=== PATIENT | female | born 1960 | race Caucasian/White ===

== ENCOUNTER 2016-08-05 14:42 | Emergency (ER) | payer OTHER ==
--- NOTE | 2016-08-05 16:04 | DIAGNOSTIC IMAGING REPORT ---
PROCEDURE: XR CHEST 2 VIEW INDICATION: CHEST PAIN TECHNIQUE: PA and lateral views. COMPARISON: None. FINDINGS: Lungs are clear. Heart and mediastinum are normal. Thorax is normal. Pacemaker and wires and electrodes. IMPRESSION: 1. No acute disease
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
--- NOTE | 2016-08-05 17:31 | ED NURSING NOTES ---
Clinical Report - Nurses [facility] [address] [place] [place] [address] 08/05/2016 14:42 Patient: JOSELYN PAREDES TRIAGE Triage time 14:48. Acuity: LEVEL 3. Chief Complaint: DIZZINESS, LIGHT HEADED and NEAR-SYNCOPE. --15:02 Rayna Barry R.N. 14:58 08/05/16. BP: 156/88. HR: 81. RR: 18. O2 saturation: 98%. Temp: 98.3 F. Pain level now: 09/24. --15:02 Rayna Barry R.N. Weight: 63.5 kg stated. Height/Length: 66 inches Per Patient. BMI: 22.6. --15:20 Rayna Barry R.N. Medications Lisinopril Oral. --20:08 Philippe Ruano R.N. Aspirin Oral. --20:09 Philippe Ruano R.N. Citalopram Hydrobromide Oral. --20:09 Philippe Ruano R.N. Allergies vicodin=rash. --14:59 Rayna Barry R.N. History Arrived by EMS. Historian: patient. This started yesterday. Onset. (Pt states she has not been feeling well for 2 days, when at court today she became light-headed and experienced left arm pain. Hx of [place] with pacemaker.). SOCIAL HX: Light tobacco smoker- less than 1/2 a pack per day. Regular alcohol use; consumes beer and three liquor weekly. No drug use. No infectious disease exposure. FALL RISK ASSESSMENT: Fall risk assessment completed. No fall risk identified. NUTRITIONAL RISK ASSESSMENT: The nutritional risk assessment revealed no deficiencies. FUNCTIONAL ASSESSMENT: Functional assessment: no impairments noted. LEARNING NEEDS ASSESSMENT: The learning needs assessment revealed no barriers. SKIN INTEGRITY ASSESSMENT: Skin integrity risk assessment completed. No skin integrity risk identified. --15:02 Rayna Barry R.N. PROBLEMS: COPD - Chronic Obstructive Pulmonary Disease. Pacemaker. Myocardial Infarction. --15:00 Rayna Barry R.N. Interventions ID band on patient. --15:02 Rayna Barry R.N. PHYSICAL ASSESSMENT GENERAL / NEURO / PSYCH: Oriented X 4. Appears in no acute distress. Alert. Speech within normal limits. HEENT: Pupils equal, round and reactive to light. RESPIRATORY: Mild respiratory distress. ( pt coached on slow, deep breathing). CVS: Normal sinus rhythm noted. GI / : Abdomen soft and nontender. SKIN: Skin is warm. --15:45 Rayna Barry R.N. Patient gowned. --15:45 Rayna Barry R.N. NURSING PROGRESS NOTES 15:15 08/05/2016 Aspirin PO Tablets 325 mg given. --15:40 Rayna Barry R.N. Monitoring of patient in place. Patient gowned. Reassurance given. Patient identifiers checked. Call light placed in reach. Side rails up. Bed placed in lowest position. --15:43 Rayna Barry R.N. ( spoke with deputy jamison, states there will not be a flour mixer helper coming to detain patient. It was explained to him that hospital staff are not going to detain her either, he is aware.). --15:43 Rayna Barry R.N. 15:30 08/05/2016 Site #1 started via IV in the left hand with an 22g angiocath, with aseptic technique; one attempt. Saline lock flushed with 10 mL saline (Small amount of blood in purple and red top). --15:45 Jamison Saldana R.N. 15:35 08/05/2016 Site #2 started via IV in the right foot with an 22g angiocath, with aseptic technique and good blood return; one attempt. Saline lock flushed with 10 mL saline (Red and Purple top drawn). --15:46 Jamison Saldana R.N. EKG time: (15:01). EKG was performed by a amadou and shown to the ED physician. --16:37 Peggy Hannah 18:01 08/05/2016 Site #3 started via IV in the left antecubital space with an 18g angiocath, with aseptic technique and good blood return; one attempt. Saline lock flushed with 10 mL saline. --18:01 Inderbitzen, Tracy, R.N. 18:01 08/05/16. ( assist to primary RN. IV started saline lock in medial left AC fossa. 10 ml NSS flush hard with no sign of infiltration. Pt tolerated well.). --18:01 Tracy Bang R.N. ( No pt needs at this time). --20:09 Philippe Ruano R.N. 20:09 08/05/16. --20:09 Philippe Ruano R.N. 20:48 08/05/2016 Bactrim DS (Sulfamethoxazole-TMP DS) PO 1 tab given. Allergies verified and confirmed 5 rights. --20:48 Antoine Vizcarra R.N. 20:57 08/05/2016 Site #1 removed upon discharge. Catheter intact. Bandaid applied. --20:57 Ani Vargas R.N. 20:57 08/05/2016 Site #2 removed upon discharge. Catheter intact. Bandaid applied. --20:57 Ani Vargas R.N. 20:57 08/05/2016 Site #3 removed upon discharge. Catheter intact. Bandaid applied. --20:57 Ani Vargas R.N. DISPOSITION / DISCHARGE 20:45. Condition at departure: improved. ( First contact with the patient.). No learning barriers present. Discharge instructions provided and reviewed with the patient. Reviewed medication(s) side effects, precautions, dosing and course information. Prescription(s) given to the patient. Patient verbalized understanding. Written instructions provided in Peruvian. The patient was discharged home and accompanied by pen and pencil repairer. She left the Emergency Department ambulatory and via private vehicle. Assignment Manager driving. Medication list reviewed and validated. --21:19 Ani Vargas R.N. 20:45 08/05/16. BP: 145/78. HR: 74. RR: 16. O2 saturation: 99% on room air. Temp: deferred. Pain level now: 08/27. 14:58 08/05/16. BP: 156/88. HR: 81. RR: 18. O2 saturation: 98%. Temp: 98.3 F. Pain level now: 09/24. --21:19 Vargas, Ani, R.N. Locked/Released at 08/05/2016 21:22 by Ani Vargas R.N.
--- NOTE | 2016-08-05 17:31 | ED ORDER SUMMARY ---
..... Patient: JOSELYN PAREDES OrderSheet [facility] VisitID: [id number] [place] [address] 55y, F Registration Date/Time: 08/05/2016 ORDER SHEET Weight: 63.5 kg (stated) Allergies: vicodin=rash GENERAL ORDERS: Chest 2V Urgent (15:[facility]05/2016 [facility] (Ack 15:15 LTapper) (15:47 SStone R.N.) Load Out Worker (Continuous) (15:08/05/2016 [facility]) (15:47 SStone R.N.) UA-Culture if indicated Urgent ([facility]2016 [facility] (Ack 15:15 LTapper) (Cancelled: Unable to Iivcgcy00:20 SRoberts R.N.) Cardiac Panel Stat (15:08/05/2016 [facility] (Ack 15:15 LTapper) (15:47 SStone R.N.) BNP Urgent (15:08/05/2016 [facility]) (Ack 15:15 LTapper) (15:47 SStone R.N.) D-Dimer Urgent (15:08/05/2016 [facility] (Ack 15:15 LTapper) (15:47 SStone R.N.) Amylase Urgent (15:08/05/2016 PHhichinson DO) (Ack 15:15 LTapper) (15:47 SStone R.N.) Lipase Urgent (15:08/05/2016 PHhichinson DO) (Ack 15:15 LTapper) (15:47 SStone R.N.) TSH Urgent (15:08/05/2016 PHhichinson DO) (Ack 15:15 LTapper) (15:47 SStone R.N.) PT with INR Urgent (15:08/05/2016 PHhichinson DO) (Ack 15:15 LTapper) (15:47 SStone R.N.) Pulse oximeter (15:08/05/2016 [facility] (15:47 SStone R.N.) EKG - ER Stat (15:10 08/05/2016 [facility]) (Ack 15:15 LTapper) (15:47 SStone R.N.) Vitals (15:10 08/05/2016 [facility]) (15:47 SStone R.N.) Old Records (from [facility]) (15:17 08/05/2016 [facility]) (Ack 15:47 LTapper) (21:20 SRoberts R.N.) CTA Thorax w Cont (No) (N/A) Urgent (16:48 08/05/2016 [facility]) (Ack 17:37 LTapper) (20:43 MCampbell) Rapid Influenza Screen (Nasal Pharyngeal) (RESPITE WORKER swab) Urgent (17:31 08/05/2016 [facility]) (Ack 17:37 LTapper) (Cancelled: Patient Inejtkp54:21 SRoberts R.N.) Troponin-I (repeat now) Urgent (19:21 08/05/2016 [facility]) (Ack 19:30 LTapper) (19:35 LTapper) MEDICATION ORDERS: Aspirin PO 325 mg (if not taken) (15:10 08/05/2016 [facility]) (Ack 15:20 SStone R.N.) (15:40 SStone R.N.) Bactrim DS PO (Tablet 800-160 mg) 1 tab (NOW) (20:38 08/05/2016 [facility]) (20:48 TLewis R.N.) IV FLUIDS: IV Saline Lock (15:10 08/05/2016 [facility]) (Ack 15:40 SStone R.N.) (15:45 JRomanelli R.N.) ORDER SHEET NOTES: [Electronically signed by Ani Vargas R.N. (21:22 08/05/2016)] [Electronically signed by Irwin Hackett DO (10:43 08/06/2016)] [Electronically locked/signed by Ani Vargas R.N. (21:22 08/05/2016)]
--- NOTE | 2016-08-05 17:31 | ED ORDER SUMMARY ---
..... Patient: JOSELYN PAREDES OrderSheet [facility] VisitID: [id number] [place] [address] 55y, F Registration Date/Time: 08/05/2016 ORDER SHEET Weight: 63.5 kg (stated) Allergies: vicodin=rash GENERAL ORDERS: Chest 2V Urgent (15:08/05/2016 [facility]) (Ack 15:15 LTapper) (15:47 SStone R.N.) Reel Blade Bender Furnace Tender (Continuous) (15:08/05/2016 [facility]) (15:47 SStone R.N.) UA-Culture if indicated Urgent ([facility]05/2016 [facility] (Ack 15:15 LTapper) (Cancelled: Unable to Rlcabav40:20 SRoberts R.N.) Cardiac Panel Stat (15:08/05/2016 [facility]) (Ack 15:15 LTapper) (15:47 SStone R.N.) BNP Urgent (15:08/05/2016 [facility]) (Ack 15:15 LTapper) (15:47 SStone R.N.) D-Dimer Urgent (15:08/05/2016 [facility]) (Ack 15:15 LTapper) (15:47 SStone R.N.) Amylase Urgent (15:08/05/2016 PHdcchinson DO) (Ack 15:15 LTapper) (15:47 SStone R.N.) Lipase Urgent (15:08/05/2016 PHdcchinson DO) (Ack 15:15 LTapper) (15:47 SStone R.N.) TSH Urgent (15:08/05/2016 PHdcchinson DO) (Ack 15:15 LTapper) (15:47 SStone R.N.) PT with INR Urgent (15:08/05/2016 PHdcchinson DO) (Ack 15:15 LTapper) (15:47 SStone R.N.) Pulse oximeter (15:08/05/2016 [facility]) (15:47 SStone R.N.) EKG - ER Stat (15:10 08/05/2016 [facility]) (Ack 15:15 LTapper) (15:47 SStone R.N.) Vitals (15:10 08/05/2016 [facility]) (15:47 SStone R.N.) [place] [facility] (15:17 08/05/2016 [facility]) (Ack 15:47 LTapper) (21:20 SRoberts R.N.) CTA Thorax w Cont (No) (N/A) Urgent (16:48 08/05/2016 [facility]) (Ack 17:37 LTapper) (20:43 MCampbell) Rapid Influenza Screen (Nasal Pharyngeal) (SALES EXPERT HOME THEATER swab) Urgent (17:31 08/05/2016 [facility]) (Ack 17:37 LTapper) (Cancelled: Patient Dqswkir49:21 SRoberts R.N.) Troponin-I (repeat now) Urgent (19:21 08/05/2016 [facility]) (Ack 19:30 LTapper) (19:35 LTapper) MEDICATION ORDERS: Aspirin PO 325 mg (if not taken) (15:10 08/05/2016 [facility]) (Ack 15:20 SStone R.N.) (15:40 SStone R.N.) Bactrim DS PO (Tablet 800-160 mg) 1 tab (NOW) (20:38 08/05/2016 [facility]) (20:48 TLewis R.N.) IV FLUIDS: IV Saline Lock (15:10 08/05/2016 [facility]) (Ack 15:40 SStone R.N.) (15:45 JRomanelli R.N.) ORDER SHEET NOTES: [Electronically signed by Ani Vargas R.N. (21:22 08/05/2016)] [Electronically signed by Irwin Hackett DO (10:43 08/06/2016)] [Electronically locked/signed by Ani Vargas R.N. (21:22 08/05/2016)]
--- NOTE | 2016-08-05 17:31 | ED NURSING NOTES ---
Clinical Report - [facility] [address] [place] [address] 08/05/2016 14:42 Patient: JOSELYN PAREDES TRIAGE Triage time 14:48. Acuity: LEVEL 3. Chief Complaint: DIZZINESS, LIGHT HEADED and NEAR-SYNCOPE. --15:02 Rayna Barry R.N. 14:58 08/05/16. BP: 156/88. HR: 81. RR: 18. O2 saturation: 98%. Temp: 98.3 F. Pain level now: 09/24. --15:02 Rayna Barry R.N. Weight: 63.5 kg stated. Height/Length: 66 inches Per Patient. BMI: 22.6. --15:20 Rayna Barry R.N. Medications Lisinopril Oral. --20:08 Philippe Ruano R.N. Aspirin Oral. --20:09 Philippe Ruano R.N. Citalopram Hydrobromide Oral. --20:09 Philippe Ruano R.N. Allergies vicodin=rash. --14:59 Rayna Barry R.N. History Arrived by EMS. Historian: patient. This started yesterday. Onset. (Pt states she has not been feeling well for 2 days, when at court today she became light-headed and experienced left arm pain. Hx of [place] with pacemaker.). SOCIAL HX: Light tobacco smoker- less than 1/2 a pack per day. Regular alcohol use; consumes beer and three liquor weekly. No drug use. No infectious disease exposure. FALL RISK ASSESSMENT: Fall risk assessment completed. No fall risk identified. NUTRITIONAL RISK ASSESSMENT: The nutritional risk assessment revealed no deficiencies. FUNCTIONAL ASSESSMENT: Functional assessment: no impairments noted. LEARNING NEEDS ASSESSMENT: The learning needs assessment revealed no barriers. SKIN INTEGRITY ASSESSMENT: Skin integrity risk assessment completed. No skin integrity risk identified. --15:02 Rayna Barry R.N. PROBLEMS: COPD - Chronic Obstructive Pulmonary Disease. Pacemaker. Myocardial Infarction. --15:00 Rayna Barry R.N. Interventions ID band on patient. --15:02 Rayna Barry R.N. PHYSICAL ASSESSMENT GENERAL / NEURO / PSYCH: Oriented X 4. Appears in no acute distress. Alert. Speech within normal limits. HEENT: Pupils equal, round and reactive to light. RESPIRATORY: Mild respiratory distress. ( pt coached on slow, deep breathing). CVS: Normal sinus rhythm noted. GI / : Abdomen soft and nontender. SKIN: Skin is warm. --15:45 Rayna Barry R.N. Patient gowned. --15:45 aRyna Barry R.N. NURSING PROGRESS NOTES 15:15 08/05/2016 Aspirin PO Tablets 325 mg given. --15:40 Rayna Barry R.N. Monitoring of patient in place. Patient gowned. Reassurance given. Patient identifiers checked. Call light placed in reach. Side rails up. Bed placed in lowest position. --15:43 Rayna Barry R.N. ( spoke with deputy jamison, states there will not be a certified adapted physical educator coming to detain patient. It was explained to him that hospital staff are not going to detain her either, he is aware.). --15:43 Rayna Barry R.N. 15:30 08/05/2016 Site #1 started via IV in the left hand with an 22g angiocath, with aseptic technique; one attempt. Saline lock flushed with 10 mL saline (Small amount of blood in purple and red top). --15:45 Jamison Saldana R.N. 15:35 08/05/2016 Site #2 started via IV in the right foot with an 22g angiocath, with aseptic technique and good blood return; one attempt. Saline lock flushed with 10 mL saline (Red and Purple top drawn). --15:46 Jamison Saldana R.N. EKG time: (15:01). EKG was performed by a amadou and shown to the ED physician. --16:37 Peggy Hannah 18:01 08/05/2016 Site #3 started via IV in the left antecubital space with an 18g angiocath, with aseptic technique and good blood return; one attempt. Saline lock flushed with 10 mL saline. --18:01 Inderbitzen, Tracy, R.N. 18:01 08/05/16. ( assist to primary RN. IV started saline lock in medial left AC fossa. 10 ml NSS flush hard with no sign of infiltration. Pt tolerated well.). --18:01 Tracy Bang R.N. ( No pt needs at this time). --20:09 Philippe Ruano R.N. 20:09 08/05/16. --20:09 Philippe Ruano R.N. 20:48 08/05/2016 Bactrim DS (Sulfamethoxazole-TMP DS) PO 1 tab given. Allergies verified and confirmed 5 rights. --20:48 Antoine Vizcarra R.N. 20:57 08/05/2016 Site #1 removed upon discharge. Catheter intact. Bandaid applied. --20:57 Ani Vargas R.N. 20:57 08/05/2016 Site #2 removed upon discharge. Catheter intact. Bandaid applied. --20:57 Ani Vargas R.N. 20:57 08/05/2016 Site #3 removed upon discharge. Catheter intact. Bandaid applied. --20:57 Ain Vargas R.N. DISPOSITION / DISCHARGE 20:45. Condition at departure: improved. ( First contact with the patient.). No learning barriers present. Discharge instructions provided and reviewed with the patient. Reviewed medication(s) side effects, precautions, dosing and course information. Prescription(s) given to the patient. Patient verbalized understanding. Written instructions provided in Samoan. The patient was discharged home and accompanied by bumper and painter. She left the Emergency Department ambulatory and via private vehicle. [employer] driving. Medication list reviewed and validated. --21:19 Ani Vargas R.N. 20:45 08/05/16. BP: 145/78. HR: 74. RR: 16. O2 saturation: 99% on room air. Temp: deferred. Pain level now: 08/27. 14:58 08/05/16. BP: 156/88. HR: 81. RR: 18. O2 saturation: 98%. Temp: 98.3 F. Pain level now: 09/24. --21:19 Vargas, Ani, R.N. Locked/Released at 08/05/2016 21:22 by Ani Vargas R.N.
--- NOTE | 2016-08-05 19:15 | DIAGNOSTIC IMAGING REPORT ---
PROCEDURE: CTA THORAX WITH CONTRAST INDICATION: CHEST PAIN, initial encounter TECHNIQUE: 108 ml of Isovue 370 was injected intravenously and axial images were obtained of the entire thorax with 3D sagittal and coronal MIP reconstructions. COMPARISON: Chest x-ray 08/05/2016 FINDINGS: No evidence of pulmonary emboli. Mild emphysematous changes. No adenopathy or effusion. Normal thoracic aorta without dissection or aneurysm. Heart size is normal. There is 6 x 9 cm air and fluid collection in the lesser sac with layering material in the dependent portion. No adjacent inflammatory changes. Moderate degenerative changes of the spine . IMPRESSION: 1. No evidence of pulmonary emboli 2. Mild emphysematous changes 3. 6 x 9 cm air and fluid collection in the lesser sac (asymptomatic) without adjacent inflammatory changes. This may represent a congenital new enteric cyst. Pseudocyst is less likely. Abscess is unlikely in the absence of enhancing wall and adjacent inflammatory changes. 4. Results discussed with Dr. Hackett
--- NOTE | 2016-08-06 10:44 | ED MAR SUMMARY ---
..... Medication Administration Record [facility] [address] [place] [address] Patient: JOSELYN PAREDES Visit ID: [id number] 55y, F Weight: 63.5 kg Height/Length: 66 in BMI: 22.6 ALLERGIES: vicodin=rash Given 15:15 08/05/2016 Rayna Barry R.N. Medication Administered: ASPIRIN [PO], Dose: 325 mg Tablets PO. Medication Ordered: Aspirin PO 325 mg (if not taken). Given 20:48 08/05/2016 Antoine Vizcarra R.N. Medication Administered: BACTRIM DS [PO] (SULFAMETHOXAZOLE-TMP DS), Dose: 1 tab PO. Medication Ordered: Bactrim DS PO (Tablet 800-160 mg) 1 tab (NOW).
--- NOTE | 2016-08-06 10:44 | ED MED RECONCILIATION SUMMARY ---
Patient: JOSELYN PAREDES Medication Reconciliation Report [facility] VisitID: [id number] [address] [place] [address] 55y, F Registration Date/Time: 08/05/2016 Weight: 63.5 kg Height/Length: 66 in. BMI: 22.6 ALLERGIES: vicodin=rash The patient's Home Medications are listed below: CONTINUE TAKING THE FOLLOWING MEDICATIONS: Aspirin Oral Citalopram Hydrobromide Oral Lisinopril Oral The source(s) of the original Home Medication information: Not obtained. The following Medications were given to the patient in the Emergency Department: Aspirin [PO] PO 325 mg, administered: 08/05/2016 3:15:00 PM Bactrim DS [PO] PO 1 tab, administered: 08/05/2016 8:48:00 PM The following Medications were prescribed to the patient: Aspirin 325 mg (available over the counter): take 1 orally every 24 hours. Dispense thirty (30). No refills. -- Irwin Hackett DO Bactrim DS 800 mg / 160 mg: Take 1 tablet orally every 12 hours for 7 days. Dispense fourteen (14). No refills. Substitution is permissible. -- Irwin Hackett DO
--- NOTE | 2016-08-06 10:44 | ED MAR SUMMARY ---
..... Medication Administration Record [facility] [address] [place] [address] Patient: JOSELYN PAREDES Visit ID: [id number] 55y, F Weight: 63.5 kg Height/Length: 66 in BMI: 22.6 ALLERGIES: vicodin=rash Given 15:15 08/05/2016 Rayna Barry R.N. Medication Administered: ASPIRIN [PO], Dose: 325 mg Tablets PO. Medication Ordered: Aspirin PO 325 mg (if not taken). Given 20:48 08/05/2016 Antoine Vizcarra R.N. Medication Administered: BACTRIM DS [PO] (SULFAMETHOXAZOLE-TMP DS), Dose: 1 tab PO. Medication Ordered: Bactrim DS PO (Tablet 800-160 mg) 1 tab (NOW).
--- NOTE | 2016-08-06 10:44 | ED MED RECONCILIATION SUMMARY ---
Patient: JOSELYN PAREDES Medication Reconciliation Report [facility] VisitID: [id number] [address] [place] [address] 55y, F Registration Date/Time: 08/05/2016 Weight: 63.5 kg Height/Length: 66 in. BMI: 22.6 ALLERGIES: vicodin=rash The patient's Home Medications are listed below: CONTINUE TAKING THE FOLLOWING MEDICATIONS: Aspirin Oral Citalopram Hydrobromide Oral Lisinopril Oral The source(s) of the original Home Medication information: Not obtained. The following Medications were given to the patient in the Emergency Department: Aspirin [PO] PO 325 mg, administered: 08/05/2016 3:15:00 PM Bactrim DS [PO] PO 1 tab, administered: 08/05/2016 8:48:00 PM The following Medications were prescribed to the patient: Aspirin 325 mg (available over the counter): take 1 orally every 24 hours. Dispense thirty (30). No refills. -- Irwin Hackett DO Bactrim DS 800 mg / 160 mg: Take 1 tablet orally every 12 hours for 7 days. Dispense fourteen (14). No refills. Substitution is permissible. -- Irwin Hackett DO
--- NOTE | 2016-08-06 10:44 | ED DISCHARGE INSTRUCTIONS ---
Patient: JOSELYN PAREDES General Instructions [facility] VisitID: [id number] [place] [address] 55y, F Registration Date/Time: 08/05/2016 Acute nontraumatic pain in the left upper extremity (elbow)(transient). Acute dizziness Acute urinary tract infection with cystitis. 6 x 9 cm air and fluid collection in the lesser sac (asymptomatic) without adjacent inflammatory changes. 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 INSTRUCTIONS Do not work for three days. Drink plenty of fluids. Do not smoke. Seek medical help to quit smoking. No alcohol until released. (MANDATORY RECHECK TOMORROW). Warnings: Further evaluation is necessary in order to recheck abnormal lab, obtain test results, conduct further tests and assess the possibility of serious illness. It is very important to follow up with a physician. GENERAL WARNINGS: Return or contact your physician immediately if your condition worsens or changes unexpectedly, if not improving as expected, or if other problems arise. SPECIFICALLY, return if you develop chest pain, fluttering sensation in your chest or lightheadedness. Your Current Medications: CONTINUE TAKING THE FOLLOWING MEDICATIONS: Aspirin Oral. Citalopram Hydrobromide Oral. Lisinopril Oral. Prescription Medications: Bactrim DS 800 mg / 160 mg: Take 1 tablet orally every 12 hours for 7 days. Dispense fourteen (14). No refills. Substitution is permissible. OTC Medications: Aspirin 325 mg (available over the counter): take 1 orally every 24 hours. Dispense thirty (30). No refills. Follow-up: Follow up with your doctor tomorrow. Follow-up with: Mariano Su MD, General Surgeon, , [facility], [address] [place] [address] Follow up in about three days. Call for the next available appointment. ADDITIONAL INFORMATION Dizziness [Uncertain Cause] Dizziness is a common symptom sometimes described as "lightheadedness" or feeling like you are going to faint. If it lasts for only a few seconds and is related to changes in position (such as getting up after lying or sitting for a long time), it is usually not a sign of anything serious. Dizziness that lasts for minutes to hours, or comes on for no apparent reason, may be a sign of a more serious problem (such as dehydration, a medicine reaction, disease of the heart or brain). Today's exam did not show an exact cause for your dizzy spell . Sometimes additional tests are required before a cause can be found. Therefore, it is important to follow up with your doctor if your symptoms continue. Home Care: 1) If a dizzy spell occurs and lasts more than a few seconds, lie down until it passes. If you are lying down, then you cannot hurt yourself by falling if you do faint. 2) Do not drive or operate dangerous equipment until the dizzy spells have stopped for at least 48 hours. 3) If dizzy spells occur with sudden standing, this may be a sign of mild dehydration. Drink extra fluids over the next few days. 4) If you recently started a new medicine or if you had the dose of a current medicine increased (especially blood pressure medicine), talk with the prescribing doctor about your symptoms. Dose adjustments may be needed. Follow Up with your doctor for further evaluation within the next seven days, if your symptoms continue. Get Prompt Medical Attention if any of the following occur: -- Worsening of your symptoms -- Fainting, headache or seizure -- Repeated vomiting -- Feeling like you or the room is spinning -- Chest, arm, neck, back or jaw pain -- Palpitations (the sense that your heart is fluttering or beating fast or hard) -- Shortness of breath -- Blood in vomit or stool (black or red color) -- Weakness of an arm or leg or one side of the face -- Difficulty with speech or vision Bladder Infection,Female (Adult) A bladder infection ("cystitis" or "UTI") usually causes a constant urge to urinate and a burning when passing urine. Urine may be cloudy, smelly or dark. There may be pain in the lower abdomen. A bladder infection occurs when bacteria from the vaginal area enter the bladder opening (urethra). This can occur from sexual intercourse, wearing tight clothing, dehydration and other factors. Home Care: Drink lots of fluids (at least 6-8 glasses a day, unless you must restrict fluids for other medical reasons). This will force the medicine into your urinary system and flush the bacteria out of your body. Avoid sexual intercourse until your symptoms are gone. Avoid caffeine, alcohol and spicy foods. These can irritate the bladder. A bladder infection is treated with antibiotics. You may also be given Pyridium (generic = phenazopyridine) to reduce the burning sensation. This medicine will cause your urine to become a bright orange color. The orange urine may stain clothing. You may wear a pad or panty-liner to protect clothing. Preventing Future Infections: Always wipe from front to back after a bowel movement. Keep the genital area clean and dry. Drink plenty of fluids each day to avoid dehydration. Both sexual partners should wash before intercourse. Urinate right after intercourse to flush out the bladder. Wear cotton underwear and cotton-lined panty hose; avoid tight-fitting pants. If you are on control pills and are having frequent bladder infections, discuss with your doctor. Follow Up: Return to this facility or see your doctor if ALL symptoms are not gone after three days of treatment. Get Prompt Medical Attention if any of the following occur: Fever of 100.4F (38C) or higher, or as directed by your healthcare provider No improvement by the third day of treatment Increasing back or abdominal pain Repeated vomiting; unable to keep medicine down Weakness, dizziness or fainting Vaginal discharge Pain, redness or swelling in the labia (outer vaginal area) How To Quit Smoking Smoking is one of the hardest habits to break. About half of all those who have ever smoked have been able to quit, and most of those (about 70%) who still smoke want to quit. Here are some of the best ways to stop smoking. Keep Trying: It takes most smokers about 8 tries before they are finally able to fully quit. So, the more often you try and fail, the better your chance of quitting the next time! So, don't give up! Go Cold [place]: Most ex-smokers quit cold turkey. Trying to cut back gradually doesn't seem to work as well, perhaps because it continues the smoking habit. Also, it is possible to fool yourself by inhaling more while smoking fewer cigarettes. This results in the same amount of nicotine in your body! Get Support: Support programs can make an important difference, especially for the heavy smoker. These groups offer lectures, methods to change your behavior and peer support. Call the free national Quitline for more information. 273-GAOI-VJO (465-027-4016). Low-cost or free programs are offered by many hospitals, local chapters of the [place] [employer] (142-157-9852) and the [place] [employer] (502-307-7794). Support at home is important too. Non-smokers can help by offering praise and encouragement. If the smoker fails to quit, encourage them to try again! Jhbg-Gbz-[id number] Medicines: For those who can't quit on their own, Nicotine Replacement Therapy (NRT) may make quitting much easier. Certain aids such as the nicotine patch, gum and lozenge are available without a prescription. However, it is best to use these under the guidance of your doctor. The skin patch provides a steady supply of nicotine to the body. Nicotine gum and lozenge gives temporary bursts of low levels of nicotine. Both methods take the edge off the craving for cigarettes. WARNING: If you feel symptoms of nicotine overdose, such as nausea, vomiting, dizziness, weakness, or fast heartbeat, stop using these and see your doctor. Prescription Medicines: After evaluating your smoking patterns and prior attempts at quitting, your doctor may offer a prescription medicine such as bupropion (Zyban, Wellbutrin), varenicline (Chantix, Champix), a niocotine inhaler or nasal spray. Each has its unique advantage and side effects which your doctor can review with you. Health Benefits Of Quitting: The benefits of quitting start right away and keep improving the longer you go without smokin minutes: blood pressure and pulse return to normal 8 hours: oxygen levels return to normal 2 days: ability to smell and taste begins to improve as damaged nerves start to regrow 2-3 weeks: circulation and lung function improves 1-9 months: decreased cough, congestion and shortness of breath; less tired 1 year: risk of heart attack decreases by half 5 years: risk of lung cancer decreases by half; risk of stroke becomes the same as a non-smoker For information about how to quit smoking, visit the following links: National Cancer [place] , Clearing the Air, Quit Smoking Today - an online booklet. http://www.smokefree.gov/pubs/clearing_the_air.pdf Smokefree.gov http://smokefree.gov/ QuitNet http://www.quitnet.com/ Sulfamethoxazole, Trimethoprim Oral tablet What is this medicine? SULFAMETHOXAZOLE; TRIMETHOPRIM or SMX-TMP (suhl fuh meth OK osvaldo zohl; trye METH oh prim) is a combination of a sulfonamide antibiotic and a second antibiotic, trimethoprim. It is used to treat or prevent certain kinds of bacterial infections. It will not work for colds, flu, or other viral infections. How should I use this medicine? Take this medicine by mouth with a full glass of water. Follow the directions on the prescription label. Take your medicine at regular intervals. Do not take it more often than directed. Do not skip doses or stop your medicine early. Talk to your central supply nurse regarding the use of this medicine in children. Special care may be needed. This medicine has been used in children as young as 2 months of age. What side effects may I notice from receiving this medicine? Side effects that you should report to your doctor or health vp care management as soon as possible: allergic reactions like skin rash or hives, swelling of the face, lips, or tongue breathing problems fever or chills, sore throat irregular heartbeat, chest pain joint or muscle pain pain or difficulty passing urine red pinpoint spots on skin redness, blistering, peeling or loosening of the skin, including inside the mouth unusual bleeding or bruising unusually weak or tired yellowing of the eyes or skin Side effects that usually do not require medical attention (report to your doctor or health vp care management if they continue or are bothersome): diarrhea dizziness headache loss of appetite nausea, vomiting nervousness What may interact with this medicine? Do not take this medicine with any of the following medications: aminobenzoate potassium dofetilide metronidazole This medicine may also interact with the following medications: CONNIE inhibitors like benazepril, enalapril, lisinopril, and ramipril cyclosporine digoxin diuretics indomethacin medicines for diabetes methenamine methotrexate phenytoin potassium supplements pyrimethamine sulfinpyrazone tricyclic antidepressants warfarin What if I miss a dose? If you miss a dose, take it as soon as you can. If it is almost time for your next dose, take only that dose. Do not take double or extra doses. Where should I keep my medicine? Keep out of the reach of children. Store at room temperature between 20 to 25 degrees C (68 to 77 degrees F). Protect from light. Throw away any unused medicine after the expiration date. What should I tell my health care provider before I take this medicine? They need to know if you have any of these conditions: anemia asthma being treated with anticonvulsants if you frequently drink alcohol containing drinks kidney disease liver disease low level of folic acid or [id number] dehydrogenase poor nutrition or malabsorption porphyria severe allergies thyroid disorder an unusual or allergic reaction to sulfamethoxazole, trimethoprim, sulfa drugs, other medicines, foods, dyes, or preservatives or trying to get breast-feeding What should I watch for while using this medicine? Tell your doctor or health vp care management if your symptoms do not improve. Drink several glasses of water a day to reduce the risk of kidney problems. Do not treat diarrhea with over the counter products. Contact your doctor if you have diarrhea that lasts more than 2 days or if it is severe and watery. This medicine can make you more sensitive to the sun. Keep out of the sun. If you cannot avoid being in the sun, wear protective clothing and use a sunscreen. Do not use sun lamps or tanning beds/booths. Aspirin Oral tablet What is this medicine? ASPIRIN ( pir in) is a pain reliever. It is used to treat mild pain and fever. This medicine is also used as directed by a doctor to prevent and to treat heart attacks, to prevent strokes, and to treat arthritis or inflammation. How should I use this medicine? Take this medicine by mouth with a glass of water. Follow the directions on the package or prescription label. You can take this medicine with or without food. If it upsets your stomach, take it with food. Do not take your medicine more often than directed. Talk to your central supply nurse regarding the use of this medicine in children. While this drug may be prescribed for children as young as 12 years of age for selected conditions, precautions do apply. Children and teenagers should not use this medicine to treat chicken pox or flu symptoms unless directed by a doctor. Patients over 65 years old may have a stronger reaction and need a smaller dose. What side effects may I notice from receiving this medicine? Side effects that you should report to your doctor or health vp care management as soon as possible: allergic reactions like skin rash, itching or hives, swelling of the face, lips, or tongue breathing problems changes in hearing, ringing in the ears confusion general ill feeling or flu-like symptoms pain on swallowing redness, blistering, peeling or loosening of the skin, including inside the mouth or nose signs and symptoms of bleeding such as bloody or black, tarry stools; red or dark-brown urine; spitting up blood or brown material that looks like coffee grounds; red spots on the skin; unusual bruising or bleeding from the eye, gums, or nose trouble passing urine or change in the amount of urine unusually weak or tired yellowing of the eyes or skin Side effects that usually do not require medical attention (report to your doctor or health vp care management if they continue or are bothersome): diarrhea or constipation nausea, vomiting stomach gas, heartburn What may interact with this medicine? Do not take this medicine with any of the following medications: cidofovir ketorolac probenecid This medicine may also interact with the following medications: alcohol alendronate bismuth subsalicylate flavocoxid herbal supplements like feverfew, garlic, [place], ginkgo biloba, horse chestnut medicines for diabetes or glaucoma like acetazolamide, methazolamide medicines for gout medicines that treat or prevent blood clots like enoxaparin, heparin, ticlopidine, warfarin other aspirin and aspirin-like medicines NSAIDs, medicines for pain and inflammation, like ibuprofen or naproxen pemetrexed sulfinpyrazone varicella live vaccine What if I miss a dose? If you are taking this medicine on a regular schedule and miss a dose, take it as soon as you can. If it is almost time for your next dose, take only that dose. Do not take double or extra doses. Where should I keep my medicine? Keep out of the reach of children. Store at room temperature between 15 and 30 degrees C (59 and 86 degrees F). Protect from heat and moisture. Do not use this medicine if it has a strong vinegar smell. Throw away any unused medicine after the expiration date. What should I tell my health care provider before I take this medicine? They need to know if you have any of these conditions: anemia asthma bleeding problems child with chickenpox, the flu, or other viral infection diabetes gout if you frequently drink alcohol containing drinks kidney disease liver disease low level of vitamin K lupus smoke tobacco stomach ulcers or other problems an unusual or allergic reaction to aspirin, tartrazine dye, other medicines, dyes, or preservatives or trying to get breast-feeding What should I watch for while using this medicine? If you are treating yourself for pain, tell your doctor or health vp care management if the pain lasts more than 10 days, if it gets worse, or if there is a new or different kind of pain. Tell your doctor if you see redness or swelling. Also, check with your doctor if you have a fever that lasts for more than 3 days. Only take this medicine to prevent heart attacks or blood clotting if prescribed by your doctor or health vp care management. Do not take aspirin or aspirin-like medicines with this medicine. Too much aspirin can be dangerous. Always read the labels carefully. This medicine can irritate your stomach or cause bleeding problems. Do not smoke cigarettes or drink alcohol while taking this medicine. Do not lie down for 30 minutes after taking this medicine to prevent irritation to your throat. If you are scheduled for any medical or dental procedure, tell your healthcare provider that you are taking this medicine. You may need to stop taking this medicine before the procedure. You have been given the following additional information: Dizziness, Unk Cause Bladder Infection, Female (Adult) Smoking Cessation Sulfamethoxazole, Trimethoprim Oral tablet Aspirin Oral tablet Do not work for three days. (Electronically signed by Irwin Hackett DO 08/06/2016 10:43)
--- NOTE | 2016-08-06 10:44 | ED DISCHARGE INSTRUCTIONS ---
Patient: JOSELYN PAREDES General Instructions [facility] VisitID: [id number] [place] [address] 55y, F Registration Date/Time: 08/05/2016 Acute nontraumatic pain in the left upper extremity (elbow)(transient). Acute dizziness Acute urinary tract infection with cystitis. 6 x 9 cm air and fluid collection in the lesser sac (asymptomatic) without adjacent inflammatory changes. 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 INSTRUCTIONS Do not work for three days. Drink plenty of fluids. Do not smoke. Seek medical help to quit smoking. No alcohol until released. (MANDATORY RECHECK TOMORROW). Warnings: Further evaluation is necessary in order to recheck abnormal lab, obtain test results, conduct further tests and assess the possibility of serious illness. It is very important to follow up with a physician. GENERAL WARNINGS: Return or contact your physician immediately if your condition worsens or changes unexpectedly, if not improving as expected, or if other problems arise. SPECIFICALLY, return if you develop chest pain, fluttering sensation in your chest or lightheadedness. Your Current Medications: CONTINUE TAKING THE FOLLOWING MEDICATIONS: Aspirin Oral. Citalopram Hydrobromide Oral. Lisinopril Oral. Prescription Medications: Bactrim DS 800 mg / 160 mg: Take 1 tablet orally every 12 hours for 7 days. Dispense fourteen (14). No refills. Substitution is permissible. OTC Medications: Aspirin 325 mg (available over the counter): take 1 orally every 24 hours. Dispense thirty (30). No refills. Follow-up: Follow up with your doctor tomorrow. Follow-up with: Mariano Su MD, General Surgeon, , [facility], [address] [place] [address] Follow up in about three days. Call for the next available appointment. ADDITIONAL INFORMATION Dizziness [Uncertain Cause] Dizziness is a common symptom sometimes described as "lightheadedness" or feeling like you are going to faint. If it lasts for only a few seconds and is related to changes in position (such as getting up after lying or sitting for a long time), it is usually not a sign of anything serious. Dizziness that lasts for minutes to hours, or comes on for no apparent reason, may be a sign of a more serious problem (such as dehydration, a medicine reaction, disease of the heart or brain). Today's exam did not show an exact cause for your dizzy spell . Sometimes additional tests are required before a cause can be found. Therefore, it is important to follow up with your doctor if your symptoms continue. Home Care: 1) If a dizzy spell occurs and lasts more than a few seconds, lie down until it passes. If you are lying down, then you cannot hurt yourself by falling if you do faint. 2) Do not drive or operate dangerous equipment until the dizzy spells have stopped for at least 48 hours. 3) If dizzy spells occur with sudden standing, this may be a sign of mild dehydration. Drink extra fluids over the next few days. 4) If you recently started a new medicine or if you had the dose of a current medicine increased (especially blood pressure medicine), talk with the prescribing doctor about your symptoms. Dose adjustments may be needed. Follow Up with your doctor for further evaluation within the next seven days, if your symptoms continue. Get Prompt Medical Attention if any of the following occur: -- Worsening of your symptoms -- Fainting, headache or seizure -- Repeated vomiting -- Feeling like you or the room is spinning -- Chest, arm, neck, back or jaw pain -- Palpitations (the sense that your heart is fluttering or beating fast or hard) -- Shortness of breath -- Blood in vomit or stool (black or red color) -- Weakness of an arm or leg or one side of the face -- Difficulty with speech or vision Bladder Infection,Female (Adult) A bladder infection ("cystitis" or "UTI") usually causes a constant urge to urinate and a burning when passing urine. Urine may be cloudy, smelly or dark. There may be pain in the lower abdomen. A bladder infection occurs when bacteria from the vaginal area enter the bladder opening (urethra). This can occur from sexual intercourse, wearing tight clothing, dehydration and other factors. Home Care: Drink lots of fluids (at least 6-8 glasses a day, unless you must restrict fluids for other medical reasons). This will force the medicine into your urinary system and flush the bacteria out of your body. Avoid sexual intercourse until your symptoms are gone. Avoid caffeine, alcohol and spicy foods. These can irritate the bladder. A bladder infection is treated with antibiotics. You may also be given Pyridium (generic = phenazopyridine) to reduce the burning sensation. This medicine will cause your urine to become a bright orange color. The orange urine may stain clothing. You may wear a pad or panty-liner to protect clothing. Preventing Future Infections: Always wipe from front to back after a bowel movement. Keep the genital area clean and dry. Drink plenty of fluids each day to avoid dehydration. Both sexual partners should wash before intercourse. Urinate right after intercourse to flush out the bladder. Wear cotton underwear and cotton-lined panty hose; avoid tight-fitting pants. If you are on control pills and are having frequent bladder infections, discuss with your doctor. Follow Up: Return to this facility or see your doctor if ALL symptoms are not gone after three days of treatment. Get Prompt Medical Attention if any of the following occur: Fever of 100.4F (38C) or higher, or as directed by your healthcare provider No improvement by the third day of treatment Increasing back or abdominal pain Repeated vomiting; unable to keep medicine down Weakness, dizziness or fainting Vaginal discharge Pain, redness or swelling in the labia (outer vaginal area) How To Quit Smoking Smoking is one of the hardest habits to break. About half of all those who have ever smoked have been able to quit, and most of those (about 70%) who still smoke want to quit. Here are some of the best ways to stop smoking. Keep Trying: It takes most smokers about 8 tries before they are finally able to fully quit. So, the more often you try and fail, the better your chance of quitting the next time! So, don't give up! Go Cold [place]: Most ex-smokers quit cold turkey. Trying to cut back gradually doesn't seem to work as well, perhaps because it continues the smoking habit. Also, it is possible to fool yourself by inhaling more while smoking fewer cigarettes. This results in the same amount of nicotine in your body! Get Support: Support programs can make an important difference, especially for the heavy smoker. These groups offer lectures, methods to change your behavior and peer support. Call the free national Quitline for more information. 981-TTNY-YFT (681-646-2945). Low-cost or free programs are offered by many hospitals, local chapters of the [employer] (628-537-7961) and the [employer] (614-460-1334). Support at home is important too. Non-smokers can help by offering praise and encouragement. If the smoker fails to quit, encourage them to try again! Xoyh-Jra-Fjfvogc Medicines: For those who can't quit on their own, Nicotine Replacement Therapy (NRT) may make quitting much easier. Certain aids such as the nicotine patch, gum and lozenge are available without a prescription. However, it is best to use these under the guidance of your doctor. The skin patch provides a steady supply of nicotine to the body. Nicotine gum and lozenge gives temporary bursts of low levels of nicotine. Both methods take the edge off the craving for cigarettes. WARNING: If you feel symptoms of nicotine overdose, such as nausea, vomiting, dizziness, weakness, or fast heartbeat, stop using these and see your doctor. Prescription Medicines: After evaluating your smoking patterns and prior attempts at quitting, your doctor may offer a prescription medicine such as bupropion (Zyban, Wellbutrin), varenicline (Chantix, Champix), a niocotine inhaler or nasal spray. Each has its unique advantage and side effects which your doctor can review with you. Health Benefits Of Quitting: The benefits of quitting start right away and keep improving the longer you go without smokin minutes: blood pressure and pulse return to normal 8 hours: oxygen levels return to normal 2 days: ability to smell and taste begins to improve as damaged nerves start to regrow 2-3 weeks: circulation and lung function improves 1-9 months: decreased cough, congestion and shortness of breath; less tired 1 year: risk of heart attack decreases by half 5 years: risk of lung cancer decreases by half; risk of stroke becomes the same as a non-smoker For information about how to quit smoking, visit the following links: National [employer] [place] , Clearing the Air, Quit Smoking Today - an online booklet. http://www.smokefree.gov/pubs/clearing_the_air.pdf Smokefree.gov http://smokefree.gov/ QuitNet http://www.quitnet.com/ Sulfamethoxazole, Trimethoprim Oral tablet What is this medicine? SULFAMETHOXAZOLE; TRIMETHOPRIM or SMX-TMP (suhl fuh meth OK osvaldo zohl; trye METH oh prim) is a combination of a sulfonamide antibiotic and a second antibiotic, trimethoprim. It is used to treat or prevent certain kinds of bacterial infections. It will not work for colds, flu, or other viral infections. How should I use this medicine? Take this medicine by mouth with a full glass of water. Follow the directions on the prescription label. Take your medicine at regular intervals. Do not take it more often than directed. Do not skip doses or stop your medicine early. Talk to your robotic welder regarding the use of this medicine in children. Special care may be needed. This medicine has been used in children as young as 2 months of age. What side effects may I notice from receiving this medicine? Side effects that you should report to your doctor or health home care specialist as soon as possible: allergic reactions like skin rash or hives, swelling of the face, lips, or tongue breathing problems fever or chills, sore throat irregular heartbeat, chest pain joint or muscle pain pain or difficulty passing urine red pinpoint spots on skin redness, blistering, peeling or loosening of the skin, including inside the mouth unusual bleeding or bruising unusually weak or tired yellowing of the eyes or skin Side effects that usually do not require medical attention (report to your doctor or health home care specialist if they continue or are bothersome): diarrhea dizziness headache loss of appetite nausea, vomiting nervousness What may interact with this medicine? Do not take this medicine with any of the following medications: aminobenzoate potassium dofetilide metronidazole This medicine may also interact with the following medications: CONNIE inhibitors like benazepril, enalapril, lisinopril, and ramipril cyclosporine digoxin diuretics indomethacin medicines for diabetes methenamine methotrexate phenytoin potassium supplements pyrimethamine sulfinpyrazone tricyclic antidepressants warfarin What if I miss a dose? If you miss a dose, take it as soon as you can. If it is almost time for your next dose, take only that dose. Do not take double or extra doses. Where should I keep my medicine? Keep out of the reach of children. Store at room temperature between 20 to 25 degrees C (68 to 77 degrees F). Protect from light. Throw away any unused medicine after the expiration date. What should I tell my health care provider before I take this medicine? They need to know if you have any of these conditions: anemia asthma being treated with anticonvulsants if you frequently drink alcohol containing drinks kidney disease liver disease low level of folic acid or [id number] dehydrogenase poor nutrition or malabsorption porphyria severe allergies thyroid disorder an unusual or allergic reaction to sulfamethoxazole, trimethoprim, sulfa drugs, other medicines, foods, dyes, or preservatives or trying to get breast-feeding What should I watch for while using this medicine? Tell your doctor or health home care specialist if your symptoms do not improve. Drink several glasses of water a day to reduce the risk of kidney problems. Do not treat diarrhea with over the counter products. Contact your doctor if you have diarrhea that lasts more than 2 days or if it is severe and watery. This medicine can make you more sensitive to the sun. Keep out of the sun. If you cannot avoid being in the sun, wear protective clothing and use a sunscreen. Do not use sun lamps or tanning beds/booths. Aspirin Oral tablet What is this medicine? ASPIRIN ( pir in) is a pain reliever. It is used to treat mild pain and fever. This medicine is also used as directed by a doctor to prevent and to treat heart attacks, to prevent strokes, and to treat arthritis or inflammation. How should I use this medicine? Take this medicine by mouth with a glass of water. Follow the directions on the package or prescription label. You can take this medicine with or without food. If it upsets your stomach, take it with food. Do not take your medicine more often than directed. Talk to your robotic welder regarding the use of this medicine in children. While this drug may be prescribed for children as young as 12 years of age for selected conditions, precautions do apply. Children and teenagers should not use this medicine to treat chicken pox or flu symptoms unless directed by a doctor. Patients over 65 years old may have a stronger reaction and need a smaller dose. What side effects may I notice from receiving this medicine? Side effects that you should report to your doctor or health home care specialist as soon as possible: allergic reactions like skin rash, itching or hives, swelling of the face, lips, or tongue breathing problems changes in hearing, ringing in the ears confusion general ill feeling or flu-like symptoms pain on swallowing redness, blistering, peeling or loosening of the skin, including inside the mouth or nose signs and symptoms of bleeding such as bloody or black, tarry stools; red or dark-brown urine; spitting up blood or brown material that looks like coffee grounds; red spots on the skin; unusual bruising or bleeding from the eye, gums, or nose trouble passing urine or change in the amount of urine unusually weak or tired yellowing of the eyes or skin Side effects that usually do not require medical attention (report to your doctor or health home care specialist if they continue or are bothersome): diarrhea or constipation nausea, vomiting stomach gas, heartburn What may interact with this medicine? Do not take this medicine with any of the following medications: cidofovir ketorolac probenecid This medicine may also interact with the following medications: alcohol alendronate bismuth subsalicylate flavocoxid herbal supplements like feverfew, garlic, [place], ginkgo biloba, horse chestnut medicines for diabetes or glaucoma like acetazolamide, methazolamide medicines for gout medicines that treat or prevent blood clots like enoxaparin, heparin, ticlopidine, warfarin other aspirin and aspirin-like medicines NSAIDs, medicines for pain and inflammation, like ibuprofen or naproxen pemetrexed sulfinpyrazone varicella live vaccine What if I miss a dose? If you are taking this medicine on a regular schedule and miss a dose, take it as soon as you can. If it is almost time for your next dose, take only that dose. Do not take double or extra doses. Where should I keep my medicine? Keep out of the reach of children. Store at room temperature between 15 and 30 degrees C (59 and 86 degrees F). Protect from heat and moisture. Do not use this medicine if it has a strong vinegar smell. Throw away any unused medicine after the expiration date. What should I tell my health care provider before I take this medicine? They need to know if you have any of these conditions: anemia asthma bleeding problems child with chickenpox, the flu, or other viral infection diabetes gout if you frequently drink alcohol containing drinks kidney disease liver disease low level of vitamin K lupus smoke tobacco stomach ulcers or other problems an unusual or allergic reaction to aspirin, tartrazine dye, other medicines, dyes, or preservatives or trying to get breast-feeding What should I watch for while using this medicine? If you are treating yourself for pain, tell your doctor or health home care specialist if the pain lasts more than 10 days, if it gets worse, or if there is a new or different kind of pain. Tell your doctor if you see redness or swelling. Also, check with your doctor if you have a fever that lasts for more than 3 days. Only take this medicine to prevent heart attacks or blood clotting if prescribed by your doctor or health home care specialist. Do not take aspirin or aspirin-like medicines with this medicine. Too much aspirin can be dangerous. Always read the labels carefully. This medicine can irritate your stomach or cause bleeding problems. Do not smoke cigarettes or drink alcohol while taking this medicine. Do not lie down for 30 minutes after taking this medicine to prevent irritation to your throat. If you are scheduled for any medical or dental procedure, tell your healthcare provider that you are taking this medicine. You may need to stop taking this medicine before the procedure. You have been given the following additional information: Dizziness, Unk Cause Bladder Infection, Female (Adult) Smoking Cessation Sulfamethoxazole, Trimethoprim Oral tablet Aspirin Oral tablet Do not work for three days. (Electronically signed by Irwin Hackett DO 08/06/2016 10:43)
== END 2016-08-05 20:45 | disposition home or self-care (01) ==
LOC: ED SRH 14:42
DX: M25.522 Pain in left elbow (principal); R42 Dizziness and giddiness; N30.00 Acute cystitis without hematuria; R91.8 Other nonspecific abnormal finding of lung field; I10 Essential (primary) hypertension; J44.9 Chronic obstructive pulmonary disease, unspecified; I25.2 Old myocardial infarction; F17.200 Nicotine dependence, unspecified, uncomplicated; Z95.0 Presence of cardiac pacemaker
CPT/HCPCS: 90004; 90074; 90100; 90469; 90616; 91320; 91400; 91556; 92235; 92530; 92610; 92720; 93140; 94060; 95059